=== PATIENT | female | born 1965 | race Caucasian/White ===

== ENCOUNTER 2018-07-09 19:04 | Emergency (ER) | payer OTHER ==
[~2018-07-09] VITALS: Ht 157.5 cm; Wt 57.9 kg
[2018-07-09 19:26] VITALS: Ht 157.5 cm; Wt 57.9 kg
--- NOTE | 2018-07-09 22:47 | ERD ---
ER Documentation Chief Complaint Chief Complaint L WRIST PAIN S/P GLF HPI This is a refill for complaint of pain to left wrist. Says that she fell on the left wrist today while walking. Denies any numbness or tingling. States that she took 2 Advil's and it made the pain go away. Denies any current pain. Denies medical problems. Denies allergies. ROS All systems reviewed and are negative except as per history of present illness. Allergies Allergies: Coded Allergies: No Known Allergy (Unverified , 07/09/18) FmHx Family History: No diabetes, No coronary disease, No other Physical Exam Vitals Vital Signs Date Temp Pulse Resp B/P (MAP) Pulse Ox O2 O2 Flow FiO2 Time Delivery Rate 07/09/18 97.9 70 18 131/71 99 19:26 (91) Physical Exam Const: No acute distress Head: Atraumatic Eyes: Normal Conjunctiva ENT: Normal External Ears, Nose and Mouth. Neck: Full range of motion. No meningismus. Resp: Clear to auscultation bilaterally Cardio: Regular rate and rhythm, no murmurs Abd: Soft, non tender, non distended. Normal bowel sounds Skin: No petechiae or rashes Back: No midline or flank tenderness Left wrist: Tenderness to palpation over the radial and ulnar aspects of the left wrist. There is some mild edema noted over the lateral aspect as well. Overlying skin is intact. Compartments are soft and warm. There is no pallor or cyanosis. Range of motion, distal pulses, and distal sensation is intact. There is normal cap refill. Neur: Awake and alert Psych: Normal Mood and Affect Procedures/MDM DIAGNOSTIC IMAGING REPORT Patient: SEBASTIAN MORENO : 1965 Age: 53 Sex: F MR #: [id number] DOS: 07/09/18 2244 Ordering MD: SHERIF ROGERS Location: [facility] Room/Bed: PROCEDURE: XR Left Hand. CLINICAL INDICATION: Status post trauma TECHNIQUE: Three views of the left hand were obtained. COMPARISON: No prior studies are available for comparison. FINDINGS: Images demonstrate a mildly displaced distal radial fracture which is extra- articular and has a mildly displaced dorsal component measuring 1 mm. Small spur s seen at the second digit distal phalanx base. A small linear calcific density is seen in the lateral joint space measuring 1.6 mm. Rest of the joint spaces are unremarkable. Bone mineralization is normal. No significant soft tissue swelling is seen. IMPRESSION: Comminuted minimally displaced distal radial fracture Old injury versus chondrocalcinosis at the third metacarpal phalangeal joint RPTAT:[facility] Leobardo Sommer Physician Date Time Electronically viewed and signed by Physician Dmitry on 07/09/2018 23:19 RL/ CC: SHERIF ROGERS [id number] DIAGNOSTIC IMAGING REPORT Patient: SEBASTIAN MORENO : 1965 Age: 53 Sex: F MR #: [id number] DOS: 07/09/18 2244 Ordering MD: SHERIF ROGERS Location: [facility] Room/Bed: PROCEDURE: XR Wrist. CLINICAL INDICATION: Pain TECHNIQUE: AP, lateral and oblique views of the left wrist were performed. COMPARISON: No prior studies are available for comparison. FINDINGS: There is a comminuted mildly displaced extra-articular distal radial fracture. There may also be an incomplete fracture of the ulnar styloid process. Mild dorsal soft tissue swelling is seen. The joint spaces are well preserved. No osseous erosions are seen. Small linear calcification is seen at the third metacarpal phalangeal joint. IMPRESSION: Comminuted minimally displaced distal radial fracture which may be subacute as there is some sclerosis visualized. Incomplete ulnar styloid process fracture. RPTAT:[facility] Physician Dmitry Date Time Electronically viewed and signed by Physician Dmitry on 07/09/2018 23:20 RL/ CC: SHERIF ROGERS [id number] MDM: X-ray confirmed distal radius and ulnar styloid process fracture. Patient was placed in a volar wrist thumb spica splint. Patient advised to follow-up with Dr. Paulino within 24 hours. Patient given Rx for ibuprofen and [place] for breakthrough for breakthrough pain. I have low suspicion for neurovascular compromise, compartment syndrome, osteomyelitis, septic joint, or other emergent condition. Patient discharged with strict ER precautions. Patient advised to follow up with PMD. All questions answered at discharge. Departure Diagnosis: Primary Impression: Closed fracture distal radius and ulna Encounter type: initial encounter Laterality: left Qualified Codes: S52.502A - Unspecified fracture of the lower end of left radius, initial encounter for closed fracture; S52.602A - Unspecified fracture of lower end of left ulna, initial encounter for closed fracture Condition: Stable SHERIF ROGERS Jul 09, 2018 22:47
[2018-07-09] MEDS ORDERED: HYDR-4011 PO (23:35)
[2018-07-09] MEDS ORDERED: IBUP-1542 PO (23:35)
[2018-07-09 23:50] VITALS: BP 122/72; PULSE 62; RESP 18
== END 2018-07-10 00:51 | disposition home or self-care (01) ==
LOC: FTE 19:04
DX: S52.502A Unspecified fracture of the lower end of left radius, initial encounter for closed fracture (principal); S52.602A Unspecified fracture of lower end of left ulna, initial encounter for closed fracture; W18.39XA Other fall on same level, initial encounter; Y92.9 Unspecified place or not applicable